=== PATIENT | female | born 1945 | race African-American/Black ===

== ENCOUNTER 2016-10-18 11:53 | Outpatient (CLI) | payer MEDICARE ==
[2016-10-18 17:48] LABS: ALT (SGPT) 15 U/L (8-55); AST (SGOT) 18 U/L (5-34); Albumin 4.2 g/dL (3.4-4.8); Alkaline Phosphatase 127 U/L (40-150); Bilirubin, Direct 0.2 mg/dL (0.1-0.3); Bilirubin, Total 0.5 mg/dL (0.2-1.2); Gamma GT (GGT) 27 U/L (9-36); Protein, Total 6.7 g/dL (6.0-8.3)
[2016-10-19 09:30] LABS: Follow-up Chemistry Comp? YES; Follow-up Result - Chemistry REPORT FAXED
== END 2016-10-18 11:54 | disposition home or self-care (01) ==
LOC: NAV LAB 11:53
DX: R74.8 Abnormal levels of other serum enzymes (principal)
CPT/HCPCS: 36415; 80076; 82977

== ENCOUNTER 2017-03-09 12:22 | Emergency (ER) | payer MEDICARE ==
--- NOTE | 2017-03-09 14:56 | RAD ---
LEFT ANKLE THREE VIEWS: HISTORY: Fall. Left ankle injury. FINDINGS: Soft tissue swelling overlies the lateral malleolus, where a minimally distracted transverse fracture extends through the tip of the fibula, below the level of the ankle mortise. The ankle mortise is i ntact. There is minimal distraction of the 0.4 cm avulsion fragment from the base of the fifth metat arsal. IMPRESSION: 1. Minimally distracted Leger Class C fracture, left lateral malleolus, with overlying soft tissue s welling. 2. Tiny ossific avulsion Botello fracture, left fifth metatarsal base. POS: [facility]
== END 2017-03-09 14:58 | disposition home or self-care (01) ==
LOC: NAV ERS 12:22
DX: S82.65XA Nondisplaced fracture of lateral malleolus of left fibula, initial encounter for closed fracture (principal); S92.352A Displaced fracture of fifth metatarsal bone, left foot, initial encounter for closed fracture; E78.5 Hyperlipidemia, unspecified; I10 Essential (primary) hypertension; Z86.73 Personal history of transient ischemic attack (TIA), and cerebral infarction without residual deficits; W01.0XXA Fall on same level from slipping, tripping and stumbling without subsequent striking against object, initial encounter